=== PATIENT | female | born 1945 | race Caucasian/White ===

== ENCOUNTER 2018-06-03 15:04 | Emergency (ER) | payer MEDICARE, OTHER ==
[2018-06-03 15:50] LABS: BILIRUBIN,URINE NEGATIVE (NEGATIVE); GLUCOSE, URINE (UA) NEGATIVE (NEGATIVE); KETONES,URINE (UA) NEGATIVE (NEGATIVE); LEUKOCYTE ESTERASE, URINE SMALL (NEGATIVE); NITRITE,URINE POSITIVE (NEGATIVE); OCCULT BLOOD,URINE SMALL (NEGATIVE); PROTEIN,URINE TRACE mg/dL (NEGATIVE); UROBILINOGEN,URINE 0.2 (NORMAL) E.U./dL (NORMAL)
[2018-06-03 16:03] LABS: CLARITY,URINE CLOUDY (CLEAR)
[2018-06-03 16:05] LABS: BACTERIA,URINE Many /HPF (None Seen); RBC,URINE TNTC /HPF (0-5); SQUAMOUS EPITHELIAL CELL,UR RARE Squamous (<= Few); WBC CLUMPS,URINE PRESENT
[2018-06-03] MEDS ORDERED: PHENAZOPYRIDINE 100 MG TABLET PO STA (16:06)
[2018-06-03] MEDS ORDERED: cephALEXin 250 MG CAPSULE PO STA (16:07)
--- NOTE | 2018-06-03 16:09 | ED Physician Documentation ---
History of Present Illness - Stated complaint Stated Complaint: FEMALE - Chief complaint Chief Complaint: UTI - Additonal information Additional information: hx from pt 72 f to ED with dysuria subj fever chills no abd pain or flank pain now did have some suprapubic and LLQ discomfort last night no NV Review of Systems Constitutional: reports: Fever, Chills Cardiac: denies: Chest pain / pressure Respiratory: denies: Dyspnea GI: reports: Abdominal Pain. 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 - Present Medications Home Medications: Ambulatory Orders Medication Instructions Recorded Confirmed Alendronate Sodium 70 mg 06/03/18 Aspirin [Adult Aspirin] 81 mg 06/03/18 Losartan Potassium [Cozaar] 100 mg 06/03/18 Melatonin 10 mg 06/03/18 Metoprolol Succinate 25 mg 06/03/18 Naproxen 500 mg 06/03/18 Omeprazole [PriLOSEC] 20 mg 06/03/18 Venlafaxine ER [Effexor ER] 37.5 mg 06/03/18 - Allergies Allergies/Adverse Reactions: Allergies Allergy/AdvReac Type Severity Reaction Status Date / Time erythromycin base Allergy Mild Nausea Verified 06/03/18 15:20 - Social History Does the pt smoke?: No Smoking Status: Never smoker Does the pt drink ETOH?: No Does the pt have substance abuse?: No - Immunizations Immunizations are current?: Yes PD ED PE NORMAL - Vitals Vital signs reviewed: Yes - HEENT HEENT: Atraumatic - Neck Neck: Supple, no meningeal sign - Cardiac Cardiac: RRR - Respiratory Respiratory: No respiratory distress - Abdomen Abdomen: Soft, Non tender - Back Back: No CVA TTP - Derm Derm: Normal color Results - Vitals Vitals: Vital Signs - 24 hr 06/03/18 15:16 Temperature 36.9 C Heart Rate 77 Respiratory 16 Rate Blood Pressure 161/86 H O2 Saturation 100 Oxygen O2 Source Room air - Labs Labs: Laboratory Tests 06/03/18 15:28 Urine Color LT RED Urine Clarity CLOUDY Urine pH 6.0 Ur Specific [place] >=1.030 H Urine Protein TRACE Urine Glucose (UA) NEGATIVE Urine Ketones NEGATIVE Urine Occult Blood SMALL H Urine Nitrite POSITIVE H Urine Bilirubin NEGATIVE Urine Urobilinogen 0.2 (NORMAL) Ur Leukocyte Esterase SMALL H Urine RBC TNTC H Urine WBC >25 H Urine WBC Clumps PRESENT Ur Squamous Epith Cells RARE Squamous Urine Bacteria Many H Ur Microscopic Review INDICATED Urine Culture Comments INDICATED - Rads (name of study) KUB Radiology: See rad report (possible UVJ stones) CT Radiology: See rad report (6 mm L UVJ stone, mild hydro) PD MEDICAL DECISION MAKING - ED course ED course: + hematuria so got KUB to eval for stone KUB non diagnositc so got CT CY shows 6 mm UVJ stone with hydro paged urology at 635PM urology called back approx 730 but at that time pts pain had completely resolved so I am failry certain the stone has passed - it was right at the edge of the bladder on CT already so do not think pt needs transfer after all gave rocephin IM as it is late to get to pharmacy and for better coverage also motrin no need for flomax now will dc pt knows what to return for (fever shaking chills, severe pain etc) also knows no urology at [facility] so consider going to Prov is safely able to do so as she lives in [place] already otherwise she will call me in the [place] to let me know how she is doing - Sepsis Event Vital Signs: Vital Signs - 24 hr 06/03/18 15:16 Temperature 36.9 C Heart Rate 77 Respiratory 16 Rate Blood Pressure 161/86 H O2 Saturation 100 Oxygen O2 Source Room air Departure - Departure Disposition: 01 Home, Self Care Clinical Impression: Renal colic Urinary tract infection Qualifiers: Urinary tract infection type: site unspecified Hematuria presence: with hematuria Qualified Code(s): N39.0 - Urinary tract infection, site not specified ; R31.9 - Hematuria, unspecified; R31.9 - Hematuria, unspecified Condition: Good Instructions: Urinary Tract Infecs Women, ED Stone Renal W Colic Comments: You have both a urine infection and a kidney stone This can be a dangerous combination because the stone blocks the infection from clearing and so the symptoms can progress to a kidney and blood stream infection or even sepsis. Thankfully your stone was partially in the bladder when the CT was done and seems to have passed while you were here in the ER So I think it is safe for you to go home Please fill the antibiotic prescription tomorrow morning - the antibiotic shot we gave you will last the rest of the night If you are worse in any way overnight (fever, shaking chills, severe pain, etc) come back to the ER or perhaps consider going to the [facility] ER in [place] if you can safely get there because there is no urologist at [facility] Call me in the morning in the ER at And please follow up with your PMD after completing the antibiotics to be sure all the blood and infection have cleared
--- NOTE | 2018-06-03 17:17 | XRAY Report ---
Procedure Date: 06/03/2018 Accession Number: [id number] / [id number] Procedure: XR - Abdomen 1 View X-Ray CPT Code: 13451 FULL RESULT: EXAM: ABDOMEN RADIOGRAPHY EXAM DATE: 06/03/2018 04:45 PM. CLINICAL HISTORY: KUB look for kidney stone hematuria. COMPARISON: None. TECHNIQUE: 1 view. FINDINGS: Bowel Gas Pattern: Within normal limits. No dilated loops. Other: No renal or ureteral calculi are seen. Couple of small calcifications seen in the pelvis more likely to be phleboliths, however bilateral 3 mm ureterovesicular junction calculi versus bladder calculi are not excluded. IMPRESSION: No renal or ureteral calculi are seen. Couple of small calcifications seen in the pelvis more likely to be phleboliths, however bilateral 3 mm ureterovesicular junction calculi versus bladder calculi are not excluded. RADIA
--- NOTE | 2018-06-03 18:32 | CT Report ---
Procedure Date: 06/03/2018 Accession Number: [id number] / [id number] Procedure: CT - Abdomen/Pelvis W/O CPT Code: FULL RESULT: EXAM: CT ABDOMEN AND PELVIS (CT KUB) EXAM DATE: 06/03/2018 06:00 PM. CLINICAL HISTORY: Hematuria, possible UVJ stones on KUB. COMPARISONS: Abdominal radiographs 06/03/2018. TECHNIQUE: Routine axial helical CT imaging was performed through the abdomen and pelvis without IV contrast. Reconstructions: Coronal and sagittal. In accordance with CT protocol optimization, one or more of the following dose reduction techniques were utilized for this exam: automated exposure control, adjustment of mA and/or KV based on patient size, or use of iterative reconstructive technique. FINDINGS: Lung Bases: Fat-containing bilateral Bochdalek hernias. No mass, consolidation or effusion. Normal heart size. Right Kidney/Ureter: No stones, hydronephrosis, or hydroureter. No perinephric fat stranding. No contour deforming lesion. Left Kidney/Ureter: Mild hydroureteronephrosis and perinephric stranding. This is due to an obstructing 6 mm maximum dimension calculus lodged at the left ureterovesical junction extending into the urinary bladder (3/130). No additional left-sided calculi. No contour deforming lesion. Other Solid Organs: Liver is borderline enlarged and steatotic. Foci of focal fatty sparing adjacent to the gallbladder fossa. Noncontrast images of the spleen, adrenal glands and pancreas are unremarkable. Gallbladder/Bile Ducts: Unremarkable. Peritoneal Cavity: No free fluid or free air. No sebastian adenopathy by noncontrast exam. No evidence of bowel obstruction or inflammation. Stool burden is above average. Few distal colonic diverticula without acute diverticulitis. Appendix is normal. Pelvic Organs: No bladder wall thickening. Left UVJ stone projecting into the urinary bladder. Uterus is surgically absent. No adnexal mass demonstrated. Vasculature: No abdominal aortic aneurysm. Mild calcific atherosclerosis present. Other: Tiny fat-containing periumbilical hernia. No bowel-containing abdominal wall hernia. IMPRESSION: 1. Mild left hydroureteronephrosis due to a 6 mm maximum dimension calculus lodged at the left ureterovesical junction projecting into the urinary bladder. No additional urinary calculi. 2. Hepatic steatosis. 3. Colonic diverticulosis. RADIA
[2018-06-03] MEDS ORDERED: TAMSULOSIN 0.4 MG CAPSULE PO STA (19:26)
[2018-06-03] MEDS ORDERED: cefTRIAXone 1 GM VIAL IM STA (19:26)
[2018-06-03] MEDS ORDERED: IBUPROFEN 400 MG TABLET PO STA (19:26)
[2018-06-03] MEDS ORDERED: LIDOCAINE 1% 2 ML VIAL SUBQ ONE (19:26)
[2018-06-03 19:52] VITALS: BP 140/80
== END 2018-06-03 19:30 | disposition home or self-care (01) ==
LOC: ED 15:04
DX: N13.2 Hydronephrosis with renal and ureteral calculous obstruction (principal); N39.0 Urinary tract infection, site not specified; R31.9 Hematuria, unspecified; K76.0 Fatty (change of) liver, not elsewhere classified; I10 Essential (primary) hypertension; Z79.82 Long term (current) use of aspirin; Z79.1 Long term (current) use of non-steroidal anti-inflammatories (NSAID)
CPT/HCPCS: 74018; 74176; 81001; 87086; 87181; 96372; 99282; 99284; A9270; 81003